=== PATIENT | male | born 1950 | race Caucasian/White ===

== ENCOUNTER → 2017-01-17 | Outpatient (CLI) | payer MEDICARE, OTHER ==
[~2017-01-17] MED LIST: AMLODIPINE BESYL5 MG PO; ASPIRIN81 MG PO; CAL MAG ZINC +1 EAC1 PO; ELIQUIS5 MG PO; FISH OIL 1,2001 EACH PO; FLAXSEED1000 MG PO; FLOMAX 0.4 MG0.4 MG PO; GINSENG250 MG PO; GLUCOPHAGE 500500 MG PO; GLUCOSAMINE-CH1 EA30 PO; LOSARTAN-HCTZ1 EAC1 PO; MULTI-DAY VITA1 EACH PO; NORCO 10-325 T1 EACH PO; PERCOCET 10-321 EACH PO; SAW PALMETTO450 MG PO; TENORMIN 50 MG50 MG PO; VITAMIN C 500500 MG PO
[2017-01-17 10:42] LABS: HEMOGLOBIN 14.6 gm/dl (14.0-17.5); RED BLOOD COUNT 5.09 M/UL (4.20-5.50); WHITE BLOOD COUNT 5.7 K/UL (4.5-11.0)
[2017-01-17 10:56] LABS: BUN/CREATININE RATIO 24 (0-10)
== END ==
LOC: OPSV2 09:49
PROVIDERS: Orthopaedic Surgery
DX: Z01.812 Encounter for preprocedural laboratory examination (principal); Z01.810 Encounter for preprocedural cardiovascular examination; M16.11 Unilateral primary osteoarthritis, right hip
CPT/HCPCS: 36415; 80048; 83036; 85025; 87081; 93005

== ENCOUNTER 2017-01-30 05:36 | Inpatient (IN) | payer MEDICARE, OTHER ==
[~2017-01-30] VITALS: Ht 175.3 cm; Wt 105.2 kg
[~2017-01-30 05:36] MED LIST changes: -ELIQUIS5 MG PO; -FLAXSEED1000 MG PO; -MULTI-DAY VITA1 EACH PO; -PERCOCET 10-321 EACH PO; -VITAMIN C 500500 MG PO
[2017-01-30] MEDS ORDERED: VITAMIN C 500500 MG PO (06:34)
[2017-01-30] MEDS ORDERED: MULTI-DAY VITA1 EACH PO (06:35)
[2017-01-30] MEDS ORDERED: FLAXSEED1000 MG PO (06:36)
[2017-01-30 12:48] LABS: HEMOGLOBIN 8.6 gm/dl (14.0-17.5)
[2017-01-31 06:06] LABS: HEMOGLOBIN 10.5 gm/dl (14.0-17.5); RED BLOOD COUNT 3.6 M/UL (4.20-5.50); WHITE BLOOD COUNT 7.7 K/UL (4.5-11.0)
[2017-01-31 06:21] LABS: BUN/CREATININE RATIO 19 (0-10)
[2017-02-01 04:50] LABS: HEMOGLOBIN 9.9 gm/dl (14.0-17.5); RED BLOOD COUNT 3.49 M/UL (4.20-5.50); WHITE BLOOD COUNT 8.5 K/UL (4.5-11.0)
[2017-02-01 05:21] LABS: BUN/CREATININE RATIO 11 (0-10)
[2017-02-01] MEDS ORDERED: ELIQUIS5 MG PO (10:48)
[2017-02-01] MEDS ORDERED: PERCOCET 10-321 EACH PO (10:48)
== END 2017-02-01 15:21 | disposition home health service (06) | DRG 470 ==
LOC: ZOBSOF 05:36 → M/S 20:06
PROVIDERS: Nurse Anesthetist, Certified Registered; ADMIT Orthopaedic Surgery
PROC: 3E0T3CZ (ICD-10-PCS; 2017-01-30)
PROC: 30233N1 Transfusion of Nonautologous Red Blood Cells into Peripheral Vein, Percutaneous Approach (ICD-10-PCS; 2017-01-30)
PROC: 30233N1 Transfusion of Nonautologous Red Blood Cells into Peripheral Vein, Percutaneous Approach (ICD-10-PCS; 2017-01-30)
PROC: 30233N1 Transfusion of Nonautologous Red Blood Cells into Peripheral Vein, Percutaneous Approach (ICD-10-PCS; 2017-01-30)
PROC: 30233N1 Transfusion of Nonautologous Red Blood Cells into Peripheral Vein, Percutaneous Approach (ICD-10-PCS; 2017-01-30)
PROC: 0SR904A Replacement of Right Hip Joint with Ceramic on Polyethylene Synthetic Substitute, Uncemented, Open Approach (ICD-10-PCS; principal; 2017-01-30 08:15)
DX: M16.11 Unilateral primary osteoarthritis, right hip (principal); D62 Acute posthemorrhagic anemia; I10 Essential (primary) hypertension; E11.9 Type 2 diabetes mellitus without complications; R50.9 Fever, unspecified; R05 Cough; E78.1 Pure hyperglyceridemia; E66.9 Obesity, unspecified; Z68.33 Body mass index [BMI] 33.0-33.9, adult; Z79.84 Long term (current) use of oral hypoglycemic drugs; Z79.82 Long term (current) use of aspirin; Z79.899 Other long term (current) drug therapy; Z88.8 Allergy status to other drugs, medicaments and biological substances; Z96.611 Presence of right artificial shoulder joint; Z98.890 Other specified postprocedural states; Z83.3 Family history of diabetes mellitus; Z82.49 Family history of ischemic heart disease and other diseases of the circulatory system; Z80.41 Family history of malignant neoplasm of ovary
CPT/HCPCS: 36415; 36430; 71010; 73501; 76000; 80048; 80061; 80076; 82962; 83540; 83550; 85014; 85018; 85025; 86850; 86900; 86901; 86920; 97110; 97116; 97530; 97535; C1776; J0690; J2250; J2795; J3010; J7030; J7050; J7120; P9016; P9045